=== PATIENT | female | born 1980 | race African-American/Black ===

== ENCOUNTER 2019-11-12 09:52 | Emergency (ER) | payer MEDICAID ==
[~2019-11-12] VITALS: Ht 165.1 cm; Wt 108.4 kg
[2019-11-12 09:57] VITALS: BP 128/93
--- NOTE | 2019-11-12 10:32 | NUR ---
c/o approx. 2mm lac to bottom of L thumb that occured yesterday. wound is beginning to heal. bleeding controlled. pt states last tdap was about 1 year ago. bed in low position, side rail up x1
--- NOTE | 2019-11-12 10:32 | NUR ---
dr. york assessing pt at bedside
[2019-11-12] MEDS ORDERED: BACITRACIN OINT 500 UNITS/GM PKT TP ONE (10:45)
--- NOTE | 2019-11-12 11:17 | NUR ---
Rosendo tomasa in [facility] - 11/12/19 at 1118 by FAZAL
[2019-11-12 11:19] VITALS: BP 128/93
--- NOTE | 2019-11-12 11:19 | NUR ---
Patient discharged with v/s stable. Written and verbal after care instructions given and explained. Patient verbalized understanding. Ambulatory with steady gait. All questions addressed prior to discharge. Advised to follow up with PMD.
== END 2019-11-12 11:19 | disposition home or self-care (01) ==
LOC: MED 09:52
DX: S61.411A Laceration without foreign body of right hand, initial encounter (principal); X58.XXXA Exposure to other specified factors, initial encounter; Y93.89 Activity, other specified; Y92.89 Other specified places as the place of occurrence of the external cause; Y99.8 Other external cause status
CPT/HCPCS: 99282